=== PATIENT | female | born 1950 | race Caucasian/White ===

== ENCOUNTER 2021-03-08 07:07 | Outpatient (CLI) | payer MEDICARE, SELFPAY ==
--- NOTE | 2021-03-08 07:16 | MM_ITS ---
WS: [id number] Bilateral screening digital mammogram, 03/08/2021 Clinical Data: SCREENING Comparison: 08/28/2012, 07/13/2011, 06/02/2010, 02/03/2009, 12/26/2007. Findings: The breast parenchymal pattern shows heterogeneous density No spiculated masses or clustered calcific ations are seen. There are no secondary signs of carcinoma. There are scattered benign calcifications throughout both breasts. There is a mole marker on the left breast. There are small axillary lymph n odes bilaterally. MM/[place] [id number] Impression: 1. Negative bilateral mammogram unchanged. 2. Recommend annual screening mammograms. BIRADS: 1-Negative FOLLOW UP: 1 Year Follow-up The CAD battery checker was used.
== END 2021-03-08 07:08 | disposition home or self-care (01) ==
PROVIDERS: PCP Family Medicine; Visit Provider Family Medicine
DX: Z12.31 Encounter for screening mammogram for malignant neoplasm of breast (principal)
CPT/HCPCS: 77067

== ENCOUNTER 2021-10-13 12:03 | Outpatient (CLI) | payer MEDICARE, SELFPAY ==
--- NOTE | 2021-10-13 13:02 | XR_ITS ---
WS: [id number] CHEST 2 VIEWS HISTORY: COUGH COMPARISON: None available. Lungs: Mild hyperinflated lungs. No mass or consolidation. Normal vascularity. Cardiac size: Normal. Mediastinum/Aorta: Normal mediastinum. Bones: Normal. XR/XR chest 2V* [id number] IMPRESSION: Chronic emphysema. No pneumonia.
== END 2021-10-13 12:04 | disposition home or self-care (01) ==
LOC: RAD 12:04
PROVIDERS: PCP Family Medicine; Visit Provider Family Medicine
DX: R05.9 Cough, unspecified (principal)
CPT/HCPCS: 71046

== ENCOUNTER → 2021-12-09 07:03 | Outpatient (BNVA) | payer MEDICARE, SELFPAY | PROVIDERS: PCP Family Medicine; Visit Provider Family Medicine | DX: N39.0 Urinary tract infection, site not specified (principal) | CPT/HCPCS: 81000; 87077; 87086; 87184 ==

== ENCOUNTER → 2021-12-29 08:26 | Outpatient (BNVA) | payer MEDICARE, SELFPAY | PROVIDERS: PCP Family Medicine; Visit Provider Anesthesiology Pain Medicine | DX: Z87.891 Personal history of nicotine dependence (principal); M54.16 Radiculopathy, lumbar region | CPT/HCPCS: 72110; 99204 ==

== ENCOUNTER → 2022-02-02 11:12 | Outpatient (BNVA) | payer MEDICARE, SELFPAY | PROVIDERS: PCP Family Medicine; Visit Provider Anesthesiology Pain Medicine | DX: M54.16 Radiculopathy, lumbar region (principal); M41.9 Scoliosis, unspecified; Z87.891 Personal history of nicotine dependence | CPT/HCPCS: 99213; 99214 ==

== ENCOUNTER 2022-03-02 10:30 | Outpatient (RCR) | payer MEDICARE, SELFPAY | END 2022-03-04 23:59 | disposition home or self-care (01) | LOC: SPT 10:30 | PROVIDERS: PCP Family Medicine; Visit Provider Anesthesiology Pain Medicine | DX: M54.50 Low back pain, unspecified (principal); G89.29 Other chronic pain | CPT/HCPCS: 97161 ==

== ENCOUNTER 2022-03-05 06:00 | Outpatient (RCR) | payer MEDICARE, SELFPAY | END 2022-04-04 23:59 | disposition home or self-care (01) | LOC: SPT 06:00 | PROVIDERS: PCP Family Medicine; Visit Provider Anesthesiology Pain Medicine | DX: M54.50 Low back pain, unspecified (principal); G89.29 Other chronic pain | CPT/HCPCS: 97110 ==

== ENCOUNTER 2022-03-15 09:37 | Observation (INO) | payer MEDICARE, SELFPAY ==
[2022-03-15] VITALS (19 sets, daily range): BP systolic 125–158; BP diastolic 51–80; PULSE 69–96; RESP 14–18; TEMP 36.4–36.7; O2SAT 92–100; BMI 28.1
[2022-03-15] MEDS: sodium chloride 0.9% 1,000 ML 30 ML IV (06:35)
[2022-03-15] MEDS: acetaminophen 1,000 MG/100 ML PIGGYBACK 400 MG IV (06:36)
--- NOTE | 2022-03-15 06:42 | ANES.PREANE2 ---
Pre-Anesthetic Assessment Height/Weight: Height 1.73 m Weight 83.915 kg Preop Diagnosis: uterine prolapse, cystocele, mixed incontinence Operation Date: 03/15/22 07:00 Proposed Procedures p Total vaginal hysterectomy, bilateral salpingo-oophorectomy 52427, Anterior and posterior repair 77923, Mid urethral sling 26072,N81.4(Not Applicable) - Nereida Bridges MD s Salpingo-Oophorectomy (Vaginal)(Bilateral) - Nereida Bridges MD s Anterior Repair(Not Applicable) - Nereida Bridges MD s Posterior Repair(Not Applicable) - Nereida Bridges MD s Sling Single Incision Midurethral Sling(Not Applicable) - Nereida Bridges MD Familial anesthetic complications: None Was Beta Misbah taken within 24 hours: N/A Was Clonidine taken within 24 hours: N/A Last intake: > 8hrs Social No alcohol and No tobacco former smoker Exam alert, oriented x 3, clear to auscultation bilaterally and regular rate & rhythm Airway Mallampati: Class I Dentition: full Pulmonary inhaler use 2x weekly (? copd) CV/HEM Hypertension None reported Hepatic None reported GI None reported Metabolic None reported Musc/skel None reported Neuropsych None reported Anesthetic Plan ASA status: 2 Anesthesia: General Risk of > 500 ml blood loss (7ml/kg in children): No Medications/Allergies Home Medications Medication Instructions Recorded Confirmed Last Taken Type amlodipine 5 mg tablet 5 mg PO BID 05/13/21 03/15/22 03/15/22 History albuterol sulfate 90 mcg/actuation 2 puff inhalation Q6H PRN 12/29/21 03/15/22 03/14/22 History aerosol inhaler (ProAir HFA) Shortness Of Breath fluticasone propionate 110 1 puff inhalation BID 12/29/21 03/15/22 03/08/22 History mcg/actuation HFA aerosol inhaler (Flovent HFA) gabapentin 300 mg capsule 300 mg PO DAILY 12/29/21 03/15/22 03/14/22 History losartan 100 1 tab PO DAILY 12/29/21 03/15/22 03/14/22 History mg-hydrochlorothiazide 25 mg tablet diclofenac sodium 75 mg 75 mg PO BID PRN pain #60 tabs 09/03/15/22 03/15/22 Rx tablet,delayed release aspirin 81 mg tablet,delayed 81 mg PO DAILY 03/14/22 03/15/22 03/14/22 History release oxybutynin chloride 10 mg 10 mg PO DAILY 03/14/22 03/15/22 Unknown History tablet,extended release 24 hr Allergies Allergy/AdvReac Type Severity Reaction Status Date / Time No Known Allergies Allergy Verified 03/10/22 08:59 [facility] Anesthesia Medical History Bladder incontinence Hypertension Surgical History History of bilateral knee replacement History of cataract surgery Family History Father CAD (coronary artery disease) Hyperlipidemia Grandfather No problems noted. Grandmother Ovarian cancer Maternal Suicide Maternal Other Stroke Denies family history of Diabetes Clotting disorder Chronic kidney disease (CKD) Bleeding disorder Hypertension Thyroid disease Social History Smoking and tobacco status: never smoked Alcohol intake: never Data Anesthesia Cardiac Studies: No Data to Display
[2022-03-15] MEDS: phenazopyridine 100 mg Tablet 200 MG PO ×3 (06:49→21:05)
[2022-03-15] MEDS: gabapentin 300 mg Capsule PO (06:49)
[2022-03-15] MEDS: CELEcoxib 200 mg Capsule 400 MG PO (06:50)
[2022-03-15] MEDS: scopolamine 1.5 Patch 1 PATCH TRANSDERMA (06:51)
[2022-03-15 07:03] LABS: Basophils # 0.1 10^3/uL (0.0-0.1); Basophils % 1.8 %; Eosinophils # 0.6 10^3/uL (0.0-0.8); Eosinophils % 11.3 %; Hematocrit 40.3 % (37.0-47.0); Hemoglobin 13.6 g/dL (11.5-15.3); Lymphocytes # 1.4 10^3/uL (0.8-4.8); Lymphocytes % 27.7 %; Mean Corpuscular HGB Conc 33.7 g/dL (30.0-36.0); Mean Corpuscular Volume 88.8 fl (81-99); Mean Platelet Volume 11.1 fL (7.4-10.4); Monocytes # 0.4 10^3/uL (0.2-0.9); Monocytes % 8.5 %; Neutrophils # 2.56 10^3/uL (1.8-7.7); Neutrophils % 50.5 %; Nucleated Red Blood Cells % 0 %; Platelet Count 161 10^3/cmm (130-400); Red Blood Count 4.54 10^6/uL (4.1-5.3); Red Cell Distribution Width 13.7 % (12.1-15.1); White Blood Count 5.1 10^3/uL (4.0-10.0)
[2022-03-15] MEDS: ceFAZolin 2,000 MG in sodium chloride 0.9% (plus) 50 ML 100 MG IV ×3 (07:05→23:06)
--- NOTE | 2022-03-15 07:07 | W.PM.OPSUD ---
Surgery/Procedure H&P Update DATE OF PROCEDURE: March 15, 2022 DATE H&P PERFORMED: 03/10/22 H&P UPDATE INFORMATION: I have reviewed H&P completed within last 30 days, I have examined patient prior to procedure and No changes to prior documentation PREOP DIAGNOSIS: uterine prolapse, cystocele, mixed incontinence PLANNED PROCEDURE: Operation Date: 03/15/22 07:00 Proposed Procedures p Total vaginal hysterectomy, bilateral salpingo-oophorectomy 25357, Anterior and posterior repair 04855, Mid urethral sling 65266,N81.4(Not Applicable) - Nereida Bridges MD s Salpingo-Oophorectomy (Vaginal)(Bilateral) - Nereida Bridges MD s Anterior Repair(Not Applicable) - Nereida Bridges MD s Posterior Repair(Not Applicable) - Nereida Bridges MD s Sling Single Incision Midurethral Sling(Not Applicable) - Nereida Bridges MD Related Problem List Diagnoses (1) Mixed incontinence: (2) Cystocele with incomplete uterovaginal prolapse: (3) Uterine prolapse:
[2022-03-15] MEDS: vasopressin 20 unit/mL INJ INJECTION (07:51)
--- NOTE | 2022-03-15 09:27 | PM.OP ---
Operative Report Date of procedure: March 15, 2022 Pre-op diagnosis: Preop Diagnosis uterine prolapse, cystocele, mixed incontinence Post-op diagnosis: same Procedure done: TVH, anterior colporrhaphy, mid urethral sling, cystoscopy Specimens removed/disposition: uterus to pathology Surgeon: Nereida Bridges Anesthesia: General Estimated blood loss (mL): 20 IV fluids (mL): 800 Urine output (mL): 500 Complications: none Findings: unable to remove tubes and ovaries as they weren't visible Condition: stable Disposition: PACU Procedure: The patient was taken to the operating room where general anesthesia was administered and found to be adequate. She was prepped and draped in the normal sterile fashion in the dorsal lithotomy position in [facility]. A Moraes catheter was placed. A weighted speculum was placed into the vagina and the anterior and posterior lip of the cervix was grasped with a Escudero tenaculum. 10 mL of dilute Pitressin was injected at the vesicovaginal junction. A circumferential incision was made at the vesicovaginal junction and the vaginal mucosa reflected cephalad. The posterior peritoneum was entered sharply with the Metzenbaum scissors and the long weighted speculum replaced. Using the Yon clamps the uterosacral ligaments were clamped cut and suture-ligated. Then sequentially the uterine arteries and cardinal ligaments were clamped cut and suture-ligated. A single-tooth tenaculum was used to deliver the uterus. The utero-ovarian ligaments were clamped cut and suture-ligated bilaterally and the specimen was removed. The bilateral fallopian tubes and ovaries were visualized and found to be normal. The peritoneum was closed with a pursestring using 2-0 Vicryl. The vaginal cuff was closed with 0 Vicryl in a running locked pattern incorporating the uterosacral ligaments into the lateral aspects of the vaginal cuff. The vaginal cuff was identified and an allis clamp was placed in the midline of the vaginal mucosa, approximately 2 cm anterior to the cuff. A second allis clamp was placed in the midline of the vaginal mucosa, about 2 cm posterior to the urethra. An incision was made in the midline from clamp to clamp. The vaginal mucosa was clamped laterally and the cystocle dissected off of the vesicovaginal fascia. The tissue was sharply and bluntly dissected along the pubic ramus bilaterally. The sling was placed on the left first by going through the incision and attaching the sling to the obturator foramen membrane . The right side was performed in a similar fashion, placing the applicator through the incision and attaching to the obturator foramen membrane. The Moraes catheter was removed and the cystoscope advanced into the bladder. Pyridium had previously been given in pre-op. Bilateral spill of orange fluid was noted from both ureteral orifices. There was no mesh noted to be in the bladder. 300 ml of sterile saline was placed into the bladder. The sling was tightened until there was no leakage with valsalva. The tag of suture was trimmed. The cystocele was packed away and the vesicovaginal fascia brought together in the midline with figure of 8 interrupted sutures of O-Vicryl. The packing was removed and the excess vaginal tissue trimmed. The entire incision was repaired with 0-Vicryl in a running fashion. Vaginal packing was placed. The patient tolerated the procedure well. Sponge lap and needle counts were correct x3. She was taken to the recovery room in stable condition.
[2022-03-15] MEDS: ketorolac 30 mg/mL INJ IVP ×3 (10:35→21:05)
[2022-03-15] MEDS: dextrose 5%-lactated ringers 1,000 ML 125 ML IV ×4 (10:35→19:22)
[2022-03-15 10:55] LABS: Anion Gap 13.6 (5-19); Blood Urea Nitrogen 9 mg/dL (8-23); Calcium 9.1 mg/dL (8.5-10.5); Carbon Dioxide 27 mmol/L (22-29); Chloride 97 mmol/L (98-107); Glucose 163 mg/dL (65-115); Osmolality Calculated 280 mOsm/kg (285-295); Potassium 3.6 mmol/L (3.5-5.1); Sodium 134 mmol/L (136-145)
--- NOTE | 2022-03-15 12:51 | ANE.PACU2 ---
Inpatient post-anesthesia follow up: Airway intact: Yes Vital signs: Temperature 97.6 F Pulse Rate 86 Respiratory Rate 18 Blood Pressure 147/51 Pulse Oximetry 93 Oxygen Delivery Me thod Room Air Oxygen Flow Rate 6 Fraction of Inspir ed Oxygen Hydration adequate: Yes Nausea and vomiting: No Pain level: 1 Mental status: Baseline
--- NOTE | 2022-03-15 15:13 | PC.NURSE ---
Malfunction noted in blood pressure monitor. The monitor was set to go off for protocol times and did not. The times it did take blood pressure, it did not record pulse or oxygen saturation.
[2022-03-15] MEDS: docusate sodium 100 mg Capsule PO (18:09)
[2022-03-15] MEDS: amlodipine 5 mg Tablet PO (18:09)
[2022-03-16] MEDS: ketorolac 30 mg/mL INJ IVP (04:00)
[2022-03-16 04:15] VITALS: BP 150/70; PULSE 79; TEMP 36.6; O2SAT 95
[2022-03-16 05:52] LABS: Hematocrit 37.5 % (37.0-47.0); Hemoglobin 12.8 g/dL (11.5-15.3); Mean Corpuscular HGB Conc 34.1 g/dL (30.0-36.0); Mean Corpuscular Hemoglobin 29.9 pg (28.0-34.0); Mean Corpuscular Volume 87.6 fl (81-99); Mean Platelet Volume 8.8 fL (7.4-10.4); Platelet Count 315 10^3/cmm (130-400); Red Blood Count 4.28 10^6/uL (4.1-5.3); Red Cell Distribution Width 13.6 % (12.1-15.1); White Blood Count 8.9 10^3/uL (4.0-10.0)
--- NOTE | 2022-03-16 10:08 | PM.DCS ---
Discharge Providers Date of Admission: 03/15/22 09:37 Date of Discharge: March 16, 2022 Attending Provider at Admission: Nereida Bridges MD Attending Provider at Discharge: Nereida Bridges MD Primary Care Provider: Jason Thomas MD Diagnoses at Discharge Discharge Diagnosis (1) Mixed incontinence: Status: Acute (2) Cystocele with incomplete uterovaginal prolapse: Status: Acute (3) Uterine prolapse: Status: Acute Hospital Course Hospital Course The patient was admitted for surgery. She did well postoperatively and was ready for discharge on day #1 Physical Exam Narrative: The patient is doing well this morning. She has been up ambulating. She has had her catheter and packing removed and only had 55 ml of post void residual. Const: COMMON NORMALS: no acute distress, average body habitus, patient oriented x3, no limitations, healthy appearing, alert and well nourished GENERAL APPEARANCE: cooperative, comfortable, well kempt and well developed ORIENTATION/CONSCIOUSNESS: Yes awake, Yes oriented to person, Yes oriented to place and Yes oriented to time Resp: COMMON NORMALS: normal respiratory effort EFFORT & INSPECTION: Yes able to speak in complete sentences GI: COMMON NORMALS: Soft to palpation and non-tender PALPATION: Yes Soft to palpation Extremity: COMMON NORMALS: no calf tenderness Neuro: COMMON NORMALS: patient oriented x3 SENSORIUM/ORIENTATION: Yes alert, Yes oriented to person, Yes oriented to place and Yes oriented to time Psych: APPEARANCE: Yes well kempt Urinary Catheter Management: Moraes: Cath Placed During This Visit: yes, but has since been removed by the nurse Reason for Continuing Indwelling Catheter: Decision to DC Catheter Urinary Catheter Date of Insertion: 03/15/22 Urinary Catheter Time of Insertion: 07:42 Date Urinary Catheter Removed: 03/16/22 Time Urinary Catheter Discontinued: 05:30 Discharge Data Studies Completed and Pending Pending at discharge Category Date Time Status Urine Culture Routine Lab 03/15/22 07:36 Results Pathology: Surgical [PTH] Routine Pth 03/15/22 08:39 Received Laboratory Results WBC 8.9 10^3/uL (4.0-10.0) 03/16/22 05:46 RBC 4.28 10^6/uL (4.1-5.3) 03/16/22 05:46 Hgb 12.8 g/dL (11.5-15.3) 03/16/22 05:46 Hct 37.5 % (37.0-47.0) 03/16/22 05:46 MCV 87.6 fl (81-99) 03/16/22 05:46 MCH 29.9 pg (28.0-34.0) 03/16/22 05:46 MCHC 34.1 g/dL (30.0-36.0) 03/16/22 05:46 RDW 13.6 % (12.1-15.1) 03/16/22 05:46 Plt Count 315 10^3/cmm (130-400) D 03/16/22 05:46 MPV 8.8 fL (7.4-10.4) 03/16/22 05:46 Neut % (Auto) 50.5 % 03/15/22 06:35 Lymph % (Auto) 27.7 % 03/15/22 06:35 Teller % (Auto) 8.5 % 03/15/22 06:35 Eos % (Auto) 11.3 % 03/15/22 06:35 Baso % (Auto) 1.8 % 03/15/22 06:35 Neut # (Auto) 2.56 10^3/uL (1.8-7.7) 03/15/22 06:35 Lymph # (Auto) 1.4 10^3/uL (0.8-4.8) 03/15/22 06:35 Teller # (Auto) 0.4 10^3/uL (0.2-0.9) 03/15/22 06:35 Eos # (Auto) 0.6 10^3/uL (0.0-0.8) 03/15/22 06:35 Baso # (Auto) 0.1 10^3/uL (0.0-0.1) 03/15/22 06:35 Nucleated RBC % (auto) 0 % 03/15/22 06:35 Nucleated RBCs # 0.0 /100WBC 03/15/22 06:35 Sodium 134 mmol/L (136-145) L 03/15/22 10:31 Potassium 3.6 mmol/L (3.5-5.1) 03/15/22 10:31 Chloride 97 mmol/L (98-107) L 03/15/22 10:31 Carbon Dioxide 27 mmol/L (22-29) 03/15/22 10:31 Anion Gap 13.6 (5-19) 03/15/22 10:31 BUN 9 mg/dL (8-23) 03/15/22 10:31 Creatinine 0.6 mg/dL (0.5-0.9) 03/15/22 10:31 GFR Calculation Not Reportable 03/15/22 10:31 Glucose 163 mg/dL (65-115) H 03/15/22 10:31 Calculated Osmolality 280 mOsm/kg (285-295) L 03/15/22 10:31 Calcium 9.1 mg/dL (8.5-10.5) 03/15/22 10:31 Blood Type O Positive 03/15/22 06:35 Rho(D) Type Positive 03/15/22 06:35 Antibody Screen Negative 03/15/22 06:35 Vitals Last Vital Signs Temp 97.9 F 03/16/22 04:15 Pulse 79 03/16/22 04:15 Resp 16 03/15/22 22:00 BP 150/70 03/16/22 04:15 Pulse Ox 95 03/16/22 04:15 O2 Del Method 03/16/22 04:15 O2 Flow Rate 6 03/15/22 09:36 Discharge Plan Discharge Patient Disposition: Home Condition: Stable Prescriptions: New docusate sodium 100 mg Capsule 100 mg PO BID Qty: 60 0RF ibuprofen 800 mg Tablet 800 mg PO Q8H Qty: 30 0RF hydrocodone-acetaminophen 5-325 mg Tablet 1 tab PO Q4H PRN (Reason: Moderate To Severe Pain) Qty: 30 0RF Continued amlodipine 5 mg tablet 5 mg PO BID albuterol sulfate [ProAir HFA] 90 mcg/actuation HFA aerosol inhaler 2 puff inhalation Q6H PRN (Reason: Shortness Of Breath) losartan-hydrochlorothiazide 100-25 mg tablet 1 tab PO DAILY gabapentin 300 mg capsule 300 mg PO DAILY fluticasone propionate [Flovent HFA] 110 mcg/actuation HFA aerosol inhaler 1 puff inhalation BID diclofenac sodium 75 mg tablet,delayed release (DR/EC) 75 mg PO BID PRN (Reason: pain) Qty: 60 3RF oxybutynin chloride 10 mg tablet extended release 24hr 10 mg PO DAILY aspirin 81 mg Tablet,Delayed Release (Dr/Ec) 81 mg PO DAILY Discharge Orders: Discharge Order (Routine); Ordered 03/16/22 Ordered By: Nereida Bridges Patient Instructions: Opioid Safety Discharge Attestations Time Spent in Discharge Care*: less than 30 min Quality Metrics Clinical Quality Measures [ No reported AMI, CVA or VTE this stay] Coding Level of Care Code Acute Chg FW DC note Diagnoses Mixed incontinence N39.46 Cystocele with incomplete uterovaginal prolapse N81.2 Uterine prolapse N81.4
[2022-03-16] MEDS: docusate sodium 100 mg Capsule PO (10:22)
[2022-03-16] MEDS: ibuprofen 800 mg tablet PO ×2 (10:22→16:19)
[2022-03-16] MEDS: phenazopyridine 100 mg Tablet 200 MG PO (10:22)
[2022-03-16 10:23] VITALS: BP 148/72
[2022-03-16] MEDS: losartan 50 mg Tablet 100 MG PO (10:23)
[2022-03-16 10:25] VITALS: BP 148/72; PULSE 80; RESP 16; TEMP 36.4; O2SAT 95
[2022-03-16] MEDS: amlodipine 5 mg Tablet PO (10:25)
[2022-03-16 17:00] VITALS: BP 156/80; PULSE 94; RESP 16; TEMP 36.4; O2SAT 95
== END 2022-03-16 17:20 | disposition home or self-care (01) ==
LOC: OBGYN 09:42
PROVIDERS: Admitting Provider Obstetrics & Gynecology; PCP Family Medicine; Visit Provider Obstetrics & Gynecology
PROC: (CPT 57288; principal; 2022-03-15 07:00)
PROC: 0JQC0ZZ Repair Pelvic Region Subcutaneous Tissue and Fascia, Open Approach (ICD-10-PCS; CPT 57240; 2022-03-15 07:00)
PROC: (CPT 57288; 2022-03-15 07:00)
DX: N81.4 Uterovaginal prolapse, unspecified (principal); N39.46 Mixed incontinence; Z87.891 Personal history of nicotine dependence; I10 Essential (primary) hypertension; Z79.82 Long term (current) use of aspirin
CPT/HCPCS: 57288; 58260; 36415; 51798; 80048; 85025; 85027; 86850; 86900; 87086; 88305; 96374; C1713; G0378; J1100; J1170; J1885; J1940; J2405; J2704; J3010; J3490; J7030

== ENCOUNTER 2022-04-04 15:00 | Outpatient (CLI) | payer MEDICARE, SELFPAY ==
--- NOTE | 2022-04-04 15:08 | MM_ITS ---
WS: [id number] BILATERAL 3D TOMOSYNTHESIS DIGITAL SCREENING MAMMOGRAPHY WITH CAD CLINICAL INFORMATION: SCREENING HISTORY: Screening mammogram. No current complaints. COMPARISON: March 08, 2021 TECHNIQUE: Bilateral CC and MLO views. FINDINGS: The breasts are composed of heterogeneous fibroglandular density tissue, which can limit the detectio n of small underlying mass lesions. No suspicious mass, asymmetry, calcifications, or architectural d istortion. No evidence of malignancy. Punctate and lucent centered calcifications. Dystrophic and clu ster calcifications upper outer LEFT breast appear stable. MM/[place] [id number] IMPRESSION: BI-RADS: 2-Benign FOLLOW UP: 1 Year Follow-up Recommend return to annual screening mammography.
== END 2022-04-04 15:01 | disposition home or self-care (01) ==
LOC: RAD 15:02
PROVIDERS: PCP Family Medicine; Visit Provider Family Medicine
DX: Z12.31 Encounter for screening mammogram for malignant neoplasm of breast (principal)
CPT/HCPCS: 77063; 77067

== ENCOUNTER 2022-04-05 06:00 | Outpatient (RCR) | payer MEDICARE, SELFPAY | END 2022-04-15 23:59 | disposition home or self-care (01) | LOC: SPT 06:00 | PROVIDERS: PCP Family Medicine; Visit Provider Anesthesiology Pain Medicine | DX: M54.50 Low back pain, unspecified (principal); G89.29 Other chronic pain | CPT/HCPCS: 97110 ==

== ENCOUNTER 2022-08-31 14:07 | Observation (INO) | payer MEDICARE, SELFPAY ==
[2022-08-30 11:35] VITALS: BMI 30.4
--- NOTE | 2022-08-30 11:48 | ECG_ITS ---
[facility] Test Date: 2022-08-30 Pat Name: Petra Avalos Department: Room: Gender: Female [employer] Manager: : 1950 Requested By: Leon Calhoun Order Number: [id number] Mary MD: Jeffrey Nunes M.D. Measurements Intervals [place] Rate: 80 P: 71 AL: 164 QRS: 87 QRSD: 97 T: 50 QT: 379 QTc: 438 Interpretive Statements SINUS RHYTHM POSSIBLE LEFT ATRIAL ENLARGEMENT [-0.1mV P-WAVE IN V1/V2] INCOMPLETE RIGHT BUNDLE BRANCH BLOCK [90+ ms QRS DURATION, TERMINAL R IN V1/V2, 40+ ms S IN I/aVL/V4/V5/V6] NONSPECIFIC T-WAVE ABNORMALITY No previous ECG available for comparison Electronically Signed On 08-31-2022 0:48:48 CDT by Jeffrey Nunes M.D. [id number]
[2022-08-30 12:07] LABS: Basophils # 0.1 10^3/uL (0.0-0.1); Basophils % 1.8 %; Eosinophils # 0.3 10^3/uL (0.0-0.8); Eosinophils % 5.9 %; Hematocrit 38.6 % (37.0-47.0); Hemoglobin 13.2 g/dL (11.5-15.3); Lymphocytes # 1.6 10^3/uL (0.8-4.8); Mean Corpuscular HGB Conc 34.2 g/dL (30.0-36.0); Mean Corpuscular Hemoglobin 30.8 pg (28.0-34.0); Mean Platelet Volume 9.8 fL (7.4-10.4); Monocytes # 0.4 10^3/uL (0.2-0.9); Monocytes % 7.6 %; Neutrophils # 3.01 10^3/uL (1.8-7.7); Neutrophils % 55.5 %; Nucleated Red Blood Cells % 0 %; Platelet Count 288 10^3/cmm (130-400); Red Blood Count 4.29 10^6/uL (4.1-5.3); Red Cell Distribution Width 13.4 % (12.1-15.1); White Blood Count 5.4 10^3/uL (4.0-10.0)
[2022-08-30 12:11] LABS: Add Urine Microscopic? NO; Charge for UA Resulting for Rev
[2022-08-30 12:17] LABS: Alanine Aminotransferase 39 U/L (0-33); Alkaline Phosphatase 121 U/L (35-105); Anion Gap 14.8 (5-19); Aspartate Amino Transferase 33 U/L (0-32); Blood Urea Nitrogen 14 mg/dL (8-23); Calcium 9.3 mg/dL (8.5-10.5); Carbon Dioxide 26 mmol/L (22-29); Chloride 97 mmol/L (98-107); Globulin 3.1 g/dL (1.3-4.6); Glucose 101 mg/dL (65-115); Osmolality Calculated 279 mOsm/kg (285-295); Potassium 3.8 mmol/L (3.5-5.1); Sodium 134 mmol/L (136-145); Total Bilirubin 0.3 mg/dL (0.15-1.2); Total Protein 7.1 g/dL (6.6-8.7)
[2022-08-30 12:22] LABS: Bilirubin Urine Neg (Negative); Blood Urine Neg (Negative); Glucose Urine UA Norm (Normal); Ketones Urine Negative (Negative); Leukocyte Esterase Urine Negative (Negative); Nitrate Urine Negative (Negative); Protein Urine Neg (Negative); Specific Gravity, Urine 1.015 (1.005-1.030); Sulfosalicylic Acid Urine Negative (Negative); Urine Appearance Clear (CLEAR); Urine Color Yellow (Yellow); Urobilinogen Urine Norm (Negative); pH Urine 8 (5-7)
--- NOTE | 2022-08-30 12:40 | ANES.PREANE2 ---
Pre-Anesthetic Assessment Height/Weight: Height 1.73 m Weight 90.718 kg Preop Diagnosis: uterine prolapse, cystocele, mixed incontinence Operation Date: 08/31/22 11:40 Proposed Procedures p Vaginal vault suspension [id number], Anterior colporrhaphy 29169 mid urethral sling 27858,N81.9,N81.10(Not Applicable) - Juan Butler MD s Sacrospinous Ligament Suspension Anterior Colporrhaphy(Not Applicable) - Juan Butler MD s Sling Single Incision Midurethral Sling(Not Applicable) - Juan Butler MD Familial anesthetic complications: none Was Beta Misbah taken within 24 hours: N/A Was Clonidine taken within 24 hours: N/A Social No alcohol and No tobacco Exam alert, oriented x 3, clear to auscultation bilaterally and regular rate & rhythm Airway Submandibular: within normal limits Cervical ROM: within normal limits Mallampati: Class II Dentition: full Pulmonary Asthma CV/HEM Hypertension Metabolic Morbid Obesity Musc/skel Lower Back Pain and Osteoarthritis/DJD Anesthetic Plan ASA status: 3 Anesthesia: General Medications/Allergies Home Medications Medication Instructions Recorded Confirmed Last Taken Type albuterol sulfate 90 mcg/actuation 2 puff inhalation Q6H PRN 12/29/21 08/30/22 08/29/22 History aerosol inhaler (ProAir HFA) Shortness Of Breath fluticasone propionate 110 1 puff inhalation BID 12/29/21 08/30/22 08/27/22 History mcg/actuation HFA aerosol inhaler (Flovent HFA) gabapentin 300 mg capsule 300 mg PO DAILY 12/29/21 08/30/22 08/29/22 History aspirin 81 mg tablet,delayed 81 mg PO DAILY 03/14/22 08/30/22 08/30/22 History release losartan 100 See Rx Instructions .Route 05/31/22 08/30/22 08/30/22 Rx mg-hydrochlorothiazide 25 mg tablet .COMPLEX #90 tabs amlodipine 5 mg tablet See Rx Instructions .Route 07/05/22 08/30/22 08/30/22 Rx .COMPLEX #180 tabs cyclobenzaprine 10 mg tablet See Rx Instructions .Route 07/05/22 08/30/22 08/29/22 Rx .COMPLEX #270 tabs oxybutynin chloride 10 mg See Rx Instructions .Route 07/14/22 08/30/22 08/29/22 Rx tablet,extended release 24 hr .COMPLEX #90 tabs diclofenac sodium 75 mg See Rx Instructions .Route 07/27/22 08/30/22 08/29/22 Rx tablet,delayed release .COMPLEX #60 tabs Allergies Allergy/AdvReac Type Severity Reaction Status Date / Time No Known Allergies Allergy Verified 08/30/22 11:29 [facility] Anesthesia Medical History Bladder incontinence Hypertension Surgical History History of bilateral knee replacement History of cataract surgery Family History (Updated 08/29/22 @ 08:50 by Ene Nicholas) Father CAD (coronary artery disease) Hyperlipidemia Grandfather No problems noted. Grandmother Ovarian cancer Maternal Stroke Denies family history of Diabetes Clotting disorder Chronic kidney disease (CKD) Bleeding disorder Hypertension Thyroid disease Data Anesthesia 08/30/22 11:43 08/30/22 11:43 Short CBC 08/30/22 Range/Units 11:43 WBC 5.4 (4.0-10.0) 10^3/uL Hgb 13.2 (11.5-15.3) g/dL Hct 38.6 (37.0-47.0) % MCV 90.0 (81-99) fl Plt Count 288 (130-400) 10^3/cmm Neut % (Auto) 55.5 % Neut # (Auto) 3.01 (1.8-7.7) 10^3/uL BMP 08/30/22 11:43 Sodium 134 L Potassium 3.8 Chloride 97 L Carbon Dioxide 26 BUN 14 Creatinine 0.6 Glucose 101 Calcium 9.3 Liver Function 08/30/22 Range/Units 11:43 Total Bilirubin 0.3 (0.15-1.2) mg/dL AST 33 H (0-32) U/L ALT 39 H (0-33) U/L Alkaline Phosphatase 121 H (35-105) U/L Albumin 4.0 (3.5-5.2) g/dL Urine 08/30/22 Range/Units 11:59 Urine Color Yellow (Yellow) Urine Appearance Clear (CLEAR) Urine pH 8 H (5-7) Ur Specific [place] 1.015 (1.005-1.030) Urine Protein Neg (Negative) Urine Glucose (UA) Norm (Normal) Urine Ketones Negative (Negative) Urine Nitrate Negative (Negative) Urine Bilirubin Neg (Negative) Ur Leukocyte Esterase Negative (Negative) Blood Bank 08/30/22 11:43 Blood Type O Positive Rho(D) Type Positive Antibody Screen Negative Cardiac Studies: No Data to Display
[2022-08-31] VITALS (15 sets, daily range): BP systolic 112–176; BP diastolic 57–88; PULSE 68–105; RESP 16–18; TEMP 36.1–37.1; O2SAT 94–100; BMI 30.4
[2022-08-31] MEDS: sodium chloride 0.9% 1,000 ML 30 ML IV (10:32)
[2022-08-31] MEDS: enoxaparin 30 mg/0.3 mL Syringe SUBCUT (10:34)
[2022-08-31] MEDS: scopolamine 1.5 Patch 1 PATCH TRANSDERMA (10:41)
--- NOTE | 2022-08-31 10:43 | W.PM.OPSUD ---
Surgery/Procedure H&P Update DATE OF PROCEDURE: August 31, 2022 DATE H&P PERFORMED: 08/29/22 H&P UPDATE INFORMATION: I have reviewed H&P completed within last 30 days, I have examined patient prior to procedure and No changes to prior documentation PREOP DIAGNOSIS: Vaginal vault prolapse, cystocele, stress urinary incontinence PLANNED PROCEDURE: Operation Date: 08/31/22 11:20 Proposed Procedures p Vaginal vault suspension [id number], Anterior colporrhaphy 00734 mid urethral sling 44646,N81.9,N81.10(Not Applicable) - Juan Butler MD s Sacrospinous Ligament Suspension Anterior Colporrhaphy(Not Applicable) - Juan Butler MD s Sling Single Incision Midurethral Sling(Not Applicable) - Juan Butler MD
--- NOTE | 2022-08-31 10:47 | P.ANESUD_ITS ---
Pre-Anesthetic Update Pre-Anesthetic Assessment: Date of Surgery/Procedure: 08/31/22 Preop Soo gnosis: Vaginal vault prolapse, cystocele, stress urinary incontinence Proposed Procedure: Operation Date: 08/31/22 11:20 Proposed Procedures p Vaginal vault suspension [id number], Anterior colporrhaphy 42809 mid urethral sling 04572,N81.9,N81.10(Not Applicable) - Juan Butler MD s Sacrospinous Ligament Suspension Anterior Colporrhaphy(Not Applicable) - Juan Butler MD s Sling Single Incision Midurethral Sling(Not Applicable) - Juan Butler MD Any changes to Pre-Anesthetic Assessment?: No Last Intake: Intake Last Liquid Date 08/30/22 Last Liquid Time 20:00 Last Solid Date 08/30/22 Last Solid Time 18:00 Labs Last 48hrs: Short CBC 08/30/22 Range/Units 11:43 WBC 5.4 (4.0-10.0) 10^3/ uL Hgb 13.2 (11.5-15.3) g/dL Hct 38.6 (37.0-47.0) % MCV 90.0 (81-99) fl Plt Count 288 (130-400) 10^3/c mm Neut % (Auto) 55.5 % Neut # (Auto) 3.01 (1.8-7.7) 10^3/u L BMP 08/30/22 11:43 Sodium 134 L Potassium 3.8 Chloride 97 L Carbon Dioxide 26 BUN 14 Creatinine 0.6 Glucose 101 Calcium 9.3 Liver Function 08/30/22 Range/Units 11:43 Total Bilirubin 0.3 (0.15-1.2) mg/dL AST 33 H (0-32) U/L ALT 39 H (0-33) U/L Alkaline Phosphata se 121 H (35-105) U/L Albumin 4.0 (3.5-5.2) g/dL Urine 08/30/22 Range/Units 11:59 Urine Color Yellow (Yellow) Urine Appearance Clear (CLEAR) Urine pH 8 H (5-7) Ur Specific Gravit y 1.015 (1.005-1.030) Urine Protein Neg (Negative) Urine Glucose (UA) Norm (Normal) Urine Ketones Negative (Negative) Urine Nitrate Negative (Negative) Urine Bilirubin Neg (Negative) Ur Leukocyte Maren ase Negative (Negative) Blood Bank 08/30/22 11:43 Blood Type O Positive Rho(D) Type Positive Antibody Screen Negative Vitals: Temperature 98.7 F 08/31/22 10:09 Temperature Source Temporal Artery S can 08/31/22 10:09 Pulse Rate 78 08/31/22 10:09 Respiratory Rate 16 08/31/22 10:09 Blood Pressure 176/88 08/31/22 10:09 Blood Pressure Rachelle n 117 08/31/22 10:09 Pulse Oximetry 97 08/31/22 10:09 Oxygen Delivery Me thod 08/31/22 10:09 Exam: Pre-Anes Outpt Exam: alert, oriented x 3, clear to auscultation bilaterally and regular rate & rhythm Cardiac Studies: No Data to Display
[2022-08-31] MEDS: ceFAZolin 2,000 MG in sodium chloride 0.9% (plus) 50 ML 100 MG IV (11:15)
[2022-08-31] MEDS: lidocaine-epi 2% 20 mL INJ INJECTION ×2 (11:52→11:58)
[2022-08-31] MEDS: estrogens Conjugated Cream 30 gm 1 APPLIC VAGINAL (11:57)
--- NOTE | 2022-08-31 13:00 | P.OP_ITS ---
Operative Report Date of procedure: August 31, 2022 Pre-op diagnosis: Preop Diagnosis Vaginal vault prolapse, cystocele, Post-op diagnosis: Same as above Procedure done: Anterior colporrhaphy augmented with allograft. Sacrospinous fixation via Anchorsure Surgeon: Juan Butler MD Estimated blood loss (mL): 25 IV fluids (mL): 800 Urine output (mL): 200 Procedure: After obtaining informed consent, the patient was taken to the operating room and placed in the supine position, given general anesthesia, and prepped and draped in sterile fashion. The abdomen, vulva and vagina were prepped and draped in a sterile manner. A time out procedure was performed. The vaginal mucosa was then injected in the midline with normal saline. The vaginal mucosa was scored in the midline with the Bovie approximately 1 cm medial to the urethral meatus to 1 cm distal to the vaginal cuff. This vaginal mucosa was then undermined and then incised in the midline with the Metzenbaum scissors. The lateral aspects of the vaginal mucosa were then grasped with the Allis clamps and the vaginal mucosa was then dissected off the underlying fascia with the Metzenbaum scissors. Again, there was noted to be quite a bit of oozing at the incision, which was controlled with cautery. After adequate dissection was performed, bilaterally. An Coloplast allograft modified at time of application to fit spacea, 3 x 3 cm piece . The Coloplast allograft placed in front of cystocele ready to be implanted facing the vagina mucosa. Suture is placed at distal end of graft and placed towards vaginal cuff. Final suture is placed on proximal portion of the graft to complete the placement overlying the bladder. Then Interrupted vertical mattress sutures of 0 Vicryl were used to elevate the cystocele superiorly. The excessive vaginal mucosa was then trimmed with the Metzenbaum scissors and the vaginal mucosa was then reapproximated in the running interlocking fashion with 2-0 Vicryl. Then at the vaginal cuff incision a finger is inserted through the incision in the posterior vaginal mucosa, dissecting out the rectovaginal space (RVS). The right rectal pillar (RRP) is identified. The rectal pillar can be bluntly perforated either with the finger or with the tip of a long Sully clamp. A thin malleable retractor is used for exposing the rectovaginal space in order to enter the pararectal space with retraction of the cardinal ligament, vagina, and rectum. Displacing the rectum to the left and the cardinal ligament and ureter anteriorly. A sponge dissector is used to bluntly dissect the sacrospinous ligament removing areolar tissue. The ischial spine was palpated directly, and a area approximately 2 cm medial to the spine was selected for insertion of the Anchorsure transvaginal sacrospinous fixation system. One end of the suture of Anchoresure system inserted through the sacrospinous ligament is placed through the muscular layer of the vagina. In a similar manner, the second suture is placed. The opposite end of the suture in the sacrospinous ligament is left free and held on a small hemostat. Then traction on this suture will draw the vaginal vault directly to the ligament, where a square knot affixes it to the sacrospinous ligament. After the susi stitch is tied the second safety stitch is tied. Then the vaginal repair is carried out in routine fashion. Then the Moraes catheter was removed and cystoscope was inserted. The bladder was filled with sterile water. Complete evaluation of the bladder mucosa was performed noting no lacerations, dimpling, tears, bleeding of the mucosa or muscular layers. Both ureteral orifices were identified. Prompt excretion of urine from both ureteral orifices was noted. Cystoscope was withdrawn. The Fo jessica catheter was replaced. Excellent hemostasis was obtained. A vaginal pack is placed overnight as postoperative support for the vaginal tissues after graft placement and closure of vaginal incisions. Sponge, lap, needle, and instrument counts were correct times three. The patient was taken to the recovery room, awake and in stable condition.
[2022-08-31] MEDS: HYDROcodone-acetaminophen 5-325 mg Tablet PO (14:39)
[2022-08-31] MEDS: dextrose 5%-lactated ringers 1,000 ML 125 ML IV ×2 (14:39→22:23)
--- NOTE | 2022-08-31 16:50 | ANE.PACU2 ---
Inpatient post-anesthesia follow up: Airway intact: Yes Vital signs: Temperature 97.0 F Pulse Rate 74 Respiratory Rate 17 Blood Pressure 140/68 Pulse Oximetry 94 Oxygen Delivery Me thod Room Air Oxygen Flow Rate 8 Fraction of Inspir ed Oxygen Hydration adequate: Yes Nausea and vomiting: No Pain level: 3 Mental status: Baseline
[2022-08-31] MEDS: amlodipine 5 mg Tablet PO (16:55)
[2022-08-31] MEDS: ketorolac 30 mg/mL INJ IVP (16:55)
[2022-08-31] MEDS: docusate sodium 100 mg Capsule PO (16:55)
[2022-09-01] MEDS: ketorolac 30 mg/mL INJ IVP (02:19)
[2022-09-01 05:02] VITALS: BP 129/71; PULSE 88; RESP 16; TEMP 36.6
[2022-09-01 05:25] LABS: Hematocrit 33.7 % (37.0-47.0); Hemoglobin 11.3 g/dL (11.5-15.3); Mean Corpuscular HGB Conc 33.5 g/dL (30.0-36.0); Mean Corpuscular Hemoglobin 30.3 pg (28.0-34.0); Mean Corpuscular Volume 90.3 fl (81-99); Platelet Count 248 10^3/cmm (130-400); Red Blood Count 3.73 10^6/uL (4.1-5.3); Red Cell Distribution Width 13.3 % (12.1-15.1); White Blood Count 8.1 10^3/uL (4.0-10.0)
--- NOTE | 2022-09-01 09:04 | PM.OBGYDC ---
Discharge Providers FORMING PROCESS WORKER Date of Admission: 08/31/22 14:07 Date of Discharge: 09/01/22 Attending Provider at Admission: Juan Butler MD Attending Provider at Discharge: Juan Butler MD Primary FORMING PROCESS WORKER: Dr. Bridges Primary Care Provider: Jason Thomas MD Reason for Visit Reason for Visit: N81.9, N81.10 Hospital Course Hospital Course Mrs. Ray 72-year-old female post vaginal hysterectomy that developed a cystocele and vaginal vault prolapse was admitted for planned anterior colporrhaphy and sacrospinous fixation. The procedures were performed without complication. Overnight observation was uneventful. Ambulating without difficulty. Tolerating diet well. She is afebrile and hemodynamically stable postoperative day 1. She was counseled regarding pelvic rest for 6 weeks (no sex, no tampons, no vaginal douches). Return to the emergency room if any fever, increased bleeding or pain. Was also advised regarding weight lifting limitation to 10 pounds. Physical Exam Narrative: GA: Alert and oriented ?3. HEENT: WNL. Heart: Regular rate and rhythm. Lungs: Clear to auscultation bilaterally. Abdomen: Bowel sounds present, nontender, minimal tenderness. DANCE PROFESSOR: No bleeding. Extremities: No edema, no cyanosis, no calves pain. Urinary Catheter Management: Moraes: Cath Placed During This Visit: yes Urinary Catheter Date of Insertion: 08/31/22 Urinary Catheter Time of Insertion: 11:40 History History History 2 Term 2 0 Miscarriages/Ectopic 0 Living Children 2 Discharge Data Studies Completed and Pending Laboratory Results WBC 8.1 10^3/uL (4.0-10.0) 09/01/22 05:10 RBC 3.73 10^6/uL (4.1-5.3) L 09/01/22 05:10 Hgb 11.3 g/dL (11.5-15.3) L 09/01/22 05:10 Hct 33.7 % (37.0-47.0) L 09/01/22 05:10 MCV 90.3 fl (81-99) 09/01/22 05:10 MCH 30.3 pg (28.0-34.0) 09/01/22 05:10 MCHC 33.5 g/dL (30.0-36.0) 09/01/22 05:10 RDW 13.3 % (12.1-15.1) 09/01/22 05:10 Plt Count 248 10^3/cmm (130-400) 09/01/22 05:10 MPV 9.0 fL (7.4-10.4) 09/01/22 05:10 Neut % (Auto) 55.5 % 08/30/22 11:43 Lymph % (Auto) 29.0 % 08/30/22 11:43 [place] % (Auto) 7.6 % 08/30/22 11:43 Eos % (Auto) 5.9 % 08/30/22 11:43 Baso % (Auto) 1.8 % 08/30/22 11:43 Neut # (Auto) 3.01 10^3/uL (1.8-7.7) 08/30/22 11:43 Lymph # (Auto) 1.6 10^3/uL (0.8-4.8) 08/30/22 11:43 [place] # (Auto) 0.4 10^3/uL (0.2-0.9) 08/30/22 11:43 Eos # (Auto) 0.3 10^3/uL (0.0-0.8) 08/30/22 11:43 Baso # (Auto) 0.1 10^3/uL (0.0-0.1) 08/30/22 11:43 Nucleated RBC % (auto) 0 % 08/30/22 11:43 Nucleated RBCs # 0.0 /100WBC 08/30/22 11:43 Sodium 134 mmol/L (136-145) L 08/30/22 11:43 Potassium 3.8 mmol/L (3.5-5.1) 08/30/22 11:43 Chloride 97 mmol/L (98-107) L 08/30/22 11:43 Carbon Dioxide 26 mmol/L (22-29) 08/30/22 11:43 Anion Gap 14.8 (5-19) 08/30/22 11:43 BUN 14 mg/dL (8-23) 08/30/22 11:43 Creatinine 0.6 mg/dL (0.5-0.9) 08/30/22 11:43 GFR Calculation Not Reportable 08/30/22 11:43 Glucose 101 mg/dL (65-115) 08/30/22 11:43 Calculated Osmolality 279 mOsm/kg (285-295) L 08/30/22 11:43 Calcium 9.3 mg/dL (8.5-10.5) 08/30/22 11:43 Total Bilirubin 0.3 mg/dL (0.15-1.2) 08/30/22 11:43 AST 33 U/L (0-32) H 08/30/22 11:43 ALT 39 U/L (0-33) H 08/30/22 11:43 Alkaline Phosphatase 121 U/L (35-105) H 08/30/22 11:43 Total Protein 7.1 g/dL (6.6-8.7) 08/30/22 11:43 Albumin 4.0 g/dL (3.5-5.2) 08/30/22 11:43 Globulin 3.1 g/dL (1.3-4.6) 08/30/22 11:43 Urine Color Yellow (Yellow) 08/30/22 11:59 Urine Appearance Clear (CLEAR) 08/30/22 11:59 Urine pH 8 (5-7) H 08/30/22 11:59 Ur Specific Sophia 1.015 (1.005-1.030) 08/30/22 11:59 Urine Protein Neg (Negative) 08/30/22 11:59 Urine Glucose (UA) Norm (Normal) 08/30/22 11:59 Urine Ketones Negative (Negative) 08/30/22 11:59 Urine Blood Neg (Negative) 08/30/22 11:59 Urine Nitrate Negative (Negative) 08/30/22 11:59 Urine Bilirubin Neg (Negative) 08/30/22 11:59 Prot Sulfosalicylic Acd Negative (Negative) 08/30/22 11:59 Urine Urobilinogen Norm mg/dL (Negative) 08/30/22 11:59 Ur Leukocyte Esterase Negative (Negative) 08/30/22 11:59 Blood Type O Positive 08/30/22 11:43 Rho(D) Type Positive 08/30/22 11:43 Antibody Screen Negative 08/30/22 11:43 Vitals Last Vital Signs Temp 97.9 F 09/01/22 05:02 Pulse 88 09/01/22 05:02 Resp 16 09/01/22 05:02 BP 129/71 09/01/22 05:02 Pulse Ox 95 08/31/22 14:25 O2 Del Method 08/31/22 15:25 O2 Flow Rate 8 08/31/22 13:20 Discharge Plan Discharge Patient Disposition: Home Condition: Stable Prescriptions: New acetaminophen 325 mg capsule 325 mg PO Q4H PRN (Reason: fever or postoperative pain) Qty: 60 0RF ibuprofen 800 mg tablet 800 mg PO TID PRN (Reason: pain) Qty: 60 0RF No Action albuterol sulfate [ProAir HFA] 90 mcg/actuation HFA aerosol inhaler 2 puff inhalation Q6H PRN (Reason: Shortness Of Breath) gabapentin 300 mg capsule 300 mg PO DAILY fluticasone propionate [Flovent HFA] 110 mcg/actuation HFA aerosol inhaler 1 puff inhalation BID losartan-hydrochlorothiazide 100-25 mg tablet See Rx Instructions .ROUTE .COMPLEX Qty: 90 0RF Dose Instruction: TAKE 1 TABLET EVERY DAY Rx Instructions: TAKE 1 TABLET EVERY DAY cyclobenzaprine 10 mg tablet See Rx Instructions .ROUTE .COMPLEX Qty: 270 2RF Dose Instruction: TAKE 1 TABLET THREE TIMES DAILY Rx Instructions: TAKE 1 TABLET THREE TIMES DAILY amlodipine 5 mg tablet See Rx Instructions .ROUTE .COMPLEX Qty: 180 2RF Dose Instruction: TAKE 1 TABLET TWICE DAILY Rx Instructions: TAKE 1 TABLET TWICE DAILY oxybutynin chloride 10 mg tablet extended release 24hr See Rx Instructions .ROUTE .COMPLEX Qty: 90 4RF Dose Instruction: TAKE 1 TABLET BY MOUTH EVERY DAY Rx Instructions: TAKE 1 TABLET BY MOUTH EVERY DAY diclofenac sodium 75 mg tablet,delayed release (DR/EC) See Rx Instructions .ROUTE .COMPLEX Qty: 60 6RF Dose Instruction: TAKE 1 TABLET TWICE DAILY NEEDED FOR PAIN Rx Instructions: TAKE 1 TABLET TWICE DAILY NEEDED FOR PAIN aspirin 81 mg Tablet,Delayed Release (Dr/Ec) 81 mg PO DAILY Discharge Orders: Discharge Order (Routine); Ordered 09/01/22 Ordered By: Juan Butler Referrals: Juna Butler MD [Physician] - 09/14/22 11:15 am (2 week post-op: 09/14/22 @11:15 6 week post-op: 10/11/22 @11:00) Discharge Diet: Soft Mechanical Discharge Activity: Limit activity as instructed Patient Instructions: Cystocele (DC), Anterior Vaginal Repair (DC), OB Discharge Report, OB Food/Drug Interaction Guide, Opioid Safety Activity Restrictions/Additional Instructions: 1. Please call [facility] on next working day to make your post-operative appointment in 2 weeks. 2. Please stay home until you come back to the clinic on first post-operative check up. 3. Please follow instructions on your medications CAREFULLY. 4. If you have abdominal incision, do not cover it unless dressing is necessary because of drainage. OK to shower, but avoid bath. Leave steri-strips until they fall off. If they are still on one week after surgery, you may remove them. 5. If you had vaginal surgery or vaginal repair, Dr. Butler may instruct you to take SITZ bath. 6. Yellow, blood tinged odorous vaginal discharge is usually normal after hysterectomy or vaginal surgeries. 7. No sexual intercourse, tampons, or douches until you are completely released from the post-operative care. 8. Avoid constipation by eating right and maybe using some Metamucil or Milk of Magnesia. 9. All prescription refills are given during the working hours. Please do no wait till it runs out. Call the clinic at [phone] before your medication runs out. The clinic will get in touch with your doctor to prescribe medications if necessary. 10. Please remain within 40 mile radius from our hospital because emergencies do happen now and then during the post-operative period. 11. If you have stairs at home, take one step at a time slowly and minimize the number of trips. It helps to stay in one floor for the next few days. No lifting except what you can lift by one hand until you are released from the post-operative care. 12. Driving is discouraged until you are well healed. It may be 3-4 weeks before you feel strong enough to drive. You should be able to turn and look through the rear window without pain and you should be able to push the brake pedal very hard without pain before you drive. No fast rules, but SAFETY should be your primary concern. DO NOT drive if you are on sedating medications such as narcotics. 13. Call the clinic (during working hours) to make urgent appointment or go to the Emergency room, if any of the following occurs: i. Vaginal bleeding becomes heavy, more than a period. ii. Incision becomes red and sore, or drains pus. iii. Your temperature is over 100.4 or you have chill. iv. IV site becomes red and swollen (a little ``knot?? is usually OK) v. Persistent nausea and vomiting vi. Persistent constipation or diarrhea vii. Rash or allergic reaction to medications. Discharge Attestations FORMING PROCESS WORKER Time Spent in Discharge Care*: greater than 30 min Coding Level of Care Code Acute Code for Chg Fwd
[2022-09-01] MEDS: hydroCHLOROthiazide 25 mg Tablet PO (10:16)
[2022-09-01] MEDS: docusate sodium 100 mg Capsule PO (10:16)
[2022-09-01] MEDS: ibuprofen 800 mg tablet PO ×2 (10:17→17:11)
[2022-09-01] MEDS: aspirin 81 mg EC Tablet PO (10:17)
[2022-09-01] MEDS: amlodipine 5 mg Tablet PO (10:21)
[2022-09-01 10:25] VITALS: BP 129/71
[2022-09-01] MEDS: losartan 50 mg Tablet 100 MG PO (10:25)
[2022-09-01 12:00] VITALS: BP 151/73; PULSE 84; RESP 15; TEMP 36.4
[2022-09-01 16:30] VITALS: BP 131/80; PULSE 83; RESP 16; TEMP 36.6
== END 2022-09-01 17:30 | disposition home or self-care (01) ==
LOC: OBGYN 14:07
PROVIDERS: Admitting Provider Obstetrics & Gynecology; PCP Family Medicine; Visit Provider Obstetrics & Gynecology
PROC: (CPT 57240; principal; 2022-08-31 11:10)
PROC: (CPT 57282; 2022-08-31 11:10)
PROC: 0TJB8ZZ Inspection of Bladder, Via Natural or Artificial Opening Endoscopic (ICD-10-PCS; CPT 52000; 2022-08-31 11:10)
DX: N81.10 Cystocele, unspecified (principal); J45.909 Unspecified asthma, uncomplicated; I10 Essential (primary) hypertension; E66.01 Morbid (severe) obesity due to excess calories; Z68.30 Body mass index [BMI] 30.0-30.9, adult; Z79.82 Long term (current) use of aspirin; I45.10 Unspecified right bundle-branch block
CPT/HCPCS: 57240; 57282; 36415; 51702; 51798; 80053; 81003; 85025; 85027; 86850; 86900; 93005; C1762; G0378; J0690; J1100; J1170; J1650; J1885; J2405; J2704; J2710; J3010; J3490; J7030; J7121

== ENCOUNTER → 2022-09-14 12:00 | Outpatient (BNVA) | payer MEDICARE, SELFPAY | PROVIDERS: PCP Family Medicine; Visit Provider Nurse Practitioner Women's Health | DX: N39.41 Urge incontinence (principal); Z48.816 Encounter for surgical aftercare following surgery on the genitourinary system | CPT/HCPCS: 81000; 87077; 87086; 87184 ==

== ENCOUNTER → 2022-12-08 10:50 | Outpatient (BNVA) | payer MEDICARE, SELFPAY | PROVIDERS: PCP Family Medicine; Visit Provider Family Medicine | DX: R73.09 Other abnormal glucose (principal); E55.9 Vitamin D deficiency, unspecified | CPT/HCPCS: 82306; 83036 ==

== ENCOUNTER 2022-12-09 12:57 | Outpatient (CLI) | payer MEDICARE, SELFPAY ==
--- NOTE | 2022-12-09 13:00 | XR_ITS ---
WS: [id number] DEXA (DUAL ENERGY X-RAY ABSORPTIOMETRY) Bone mineral density was performed using a Mantex machine. HISTORY: Screening for osteoporosis COMPARISON: None available. Lumbar spine BMD (L1-L4): 1.255 g/cm2 T score: 0.6 Z score: 1.4 Total hip BMD: Left: 0.935 g/cm2. T score: -0.6 Z score: 0.3 Right: 0.976 g/cm2. T score: -0.3 Z score: 0.7 10 year probability of a major osteoporotic fracture is 13.8%. Mild curvature lumbar spine. XR/XR DEXA axial skeleton* [id number] IMPRESSION: NORMAL BONE MINERAL DENSITY based upon the WHO classification for females.
== END 2022-12-09 12:58 | disposition home or self-care (01) ==
LOC: RAD 13:00
PROVIDERS: PCP Family Medicine; Visit Provider Family Medicine
DX: Z13.820 Encounter for screening for osteoporosis (principal); Z78.0 Asymptomatic menopausal state
CPT/HCPCS: 77080

== ENCOUNTER 2022-12-27 13:48 | Outpatient (RCR) | payer MEDICARE, SELFPAY | END 2023-01-02 23:59 | disposition home or self-care (01) | LOC: SPT 13:48 | PROVIDERS: PCP Family Medicine; Visit Provider Family Medicine | DX: R29.6 Repeated falls (principal) | CPT/HCPCS: 97161 ==

== ENCOUNTER 2023-01-03 06:00 | Outpatient (RCR) | payer MEDICARE, SELFPAY | END 2023-02-02 23:59 | disposition home or self-care (01) | LOC: SPT 06:00 | PROVIDERS: PCP Family Medicine; Visit Provider Family Medicine | DX: R29.6 Repeated falls (principal) | CPT/HCPCS: 97110; 97112 ==

== ENCOUNTER 2023-01-26 08:23 | Outpatient (CLI) | payer MEDICARE, SELFPAY ==
--- NOTE | 2023-01-26 08:45 | USCV_ITS ---
Petra Avalos Age: 72 Gender: F : 1950 Exam Date: 01/26/2023 09:05 Ordering Phys: Jason Thomas MD Technologist: VIRA Exam Location: [facility] [place] Indication: syncope with collapse BP: 106 / 78 HR: 56 Rhythm: Sinus Technical Quality: Good MEASUREMENTS (Male / Female) Normal Values 2D ECHO LV Diastolic Diameter PLAX 4.8 cm 4.2 - 5.9 / 3.9 - 5.3 cm LV Systolic Diameter PLAX 2.7 cm IVS Diastolic Thickness 1.3 cm 0.6 - 1.0 / 0.6 - 0.9 cm IVS Systolic Thickness 1.4 cm LVPW Diastolic Thickness 1.2 cm 0.6 - 1.0 / 0.6 - 0.9 cm LVPW Systolic Thickness 1.6 cm LV Ejection Fraction 2D Teich 74.3 % LV Ejection Fraction MOD 2C 53.7 % LV Ejection Fraction 2C AL 52.3 % LA Diameter 3.1 cm LA Width 2.9 cm LA Height 4.5 cm RA Width 2.6 cm RA Height 3.5 cm Aorta at Sinotubular Diameter 3.0 cm IVC Diameter 1.5 cm M-MODE Aortic Annulus Diameter 3.1 cm LA Ao Ratio MM 1.1 MV E Point Septal Separation 0.3 cm DOPPLER AV Peak Velocity 158.0 cm/s LVOT Peak Velocity 101.0 cm/s MV Peak Velocity 93.0 cm/s MV Area PHT 3.1 cm squared Mitral E to A Ratio 0.6 MV E' Velocity 31.5 cm/s Mitral E to MV E' Ratio 7.6 Mitral E to LV E' Lateral Ratio 7.9 Mitral E to LV E' Septal Ratio 7.4 TR Peak Velocity 167.5 cm/s TR Peak Gradient 11.2 mmHg Right Atrial Pressure 5.0 mmHg Pulmonary Artery Systolic Pressu 16.2 mmHg PV Peak Velocity 120.0 cm/s RV Acceleration Time 0.2 s RV Ejection Time 0.3 s RV AcT/ET 0.5 FINDINGS Left Ventricle Normal left ventricular size and systolic function, EF60 % (visual). No regional wall motion abnormalities. Grade I/IV diastolic dysfunction (abnormal relaxation filling pattern), normal to mildly elevated filling pressures. Right Ventricle The right ventricle is normal in size and function. Right Atrium The right atrium is normal in size. Left Atrium The left atrium is normal in size. Mitral Valve Trace to mild mitral valve regurgitation. Aortic Valve Thickened aortic valve. Tricuspid Valve Trace tricuspid valve regurgitation. Pulmonic Valve Pulmonic valve not well visualized. Pericardium Normal pericardium without effusion. Aorta Normal ascending aorta dimension. IVC Normal inferior vena cava. CONCLUSIONS Normal left ventricular size and systolic function, EF60 % (visual). No regional wall motion abnormalities. Grade I/IV diastolic dysfunction (abnormal relaxation filling pattern), normal to mildly elevated filling pressures. Trace to mild mitral valve regurgitation. Trace tricuspid valve regurgitation. Estimated pulmonary artery peak systolic pressure within normal limits There is no pericardial effusion. There are no intracardiac masses. No similar previous studies are available for comparison Dr Jeffrey Nunes MD [facility] (Electronically Signed) Final Date: 26 January 2023 14:07 S
== END 2023-01-26 08:24 | disposition home or self-care (01) ==
PROVIDERS: PCP Family Medicine; Visit Provider Family Medicine
DX: R01.1 Cardiac murmur, unspecified (principal); R55 Syncope and collapse; I34.0 Nonrheumatic mitral (valve) insufficiency; I51.89 Other ill-defined heart diseases
CPT/HCPCS: 93306

== ENCOUNTER 2023-02-03 06:00 | Outpatient (RCR) | payer MEDICARE, SELFPAY | END 2023-03-04 23:59 | disposition home or self-care (01) | LOC: SPT 06:00 | PROVIDERS: PCP Family Medicine; Visit Provider Family Medicine | DX: R29.6 Repeated falls (principal) | CPT/HCPCS: 97110; 97112 ==

== ENCOUNTER → 2023-04-20 11:54 | Outpatient (BNVA) | payer MEDICARE, SELFPAY | PROVIDERS: PCP Family Medicine; Visit Provider Family Medicine | DX: R30.0 Dysuria (principal); N39.0 Urinary tract infection, site not specified; I83.009 Varicose veins of unspecified lower extremity with ulcer of unspecified site; L97.909 Non-pressure chronic ulcer of unspecified part of unspecified lower leg with unspecified severity; K21.9 Gastro-esophageal reflux disease without esophagitis | CPT/HCPCS: 81000; 87077; 87086; 87184 ==

== ENCOUNTER 2023-04-24 08:09 | Outpatient (CLI) | payer MEDICARE, SELFPAY ==
--- NOTE | 2023-04-24 08:16 | MM_ITS ---
WS: [id number] BILATERAL SCREENING DIGITAL TOMOSYNTHESIS MAMMOGRAM WITH CAD HISTORY: SCREEN COMPARISON: 04/04/2022 and 03/08/2021 Bilateral CC and MLO views with tomosynthesis and synthetic mammography submitted. Computer aided det ection analyzed. Breast composition: There are scattered areas of fibroglandular density. No suspicious masses, microc alcifications or architectural distortion. Benign calcifications in each breast. IMPRESSION: MM/[place] [id number] BI-RADS: 2-Benign FOLLOW UP: 1 Year Follow-up
== END 2023-04-24 08:10 | disposition home or self-care (01) ==
LOC: RAD 08:09
PROVIDERS: PCP Family Medicine; Visit Provider Family Medicine
DX: Z12.31 Encounter for screening mammogram for malignant neoplasm of breast (principal)
CPT/HCPCS: 77063; 77067

== ENCOUNTER → 2023-07-20 11:50 | Outpatient (BNVA) | payer MEDICARE, SELFPAY | PROVIDERS: PCP Family Medicine; Visit Provider Clinical Nurse Specialist Adult Health | DX: N39.41 Urge incontinence (principal); N30.00 Acute cystitis without hematuria | CPT/HCPCS: 81000; 87077; 87086; 87184 ==

== ENCOUNTER → 2023-11-16 09:14 | Outpatient (BNVA) | payer MEDICARE, SELFPAY | PROVIDERS: PCP Family Medicine; Visit Provider Family Medicine | DX: R30.0 Dysuria (principal); N39.0 Urinary tract infection, site not specified | CPT/HCPCS: 81000; 87086 ==

== ENCOUNTER 2024-02-19 12:27 | Outpatient (CLI) | payer MEDICARE, SELFPAY ==
--- NOTE | 2024-02-19 12:32 | XRR_ITS ---
PROCEDURE INFORMATION: Exam: XR Cervical Spine Exam date and time: 02/19/2024 12:37 PM Age: 73 years old Clinical indication: Radicular pain (radiculopathy); Cervical region; Additional info: Cervical radiculopathy TECHNIQUE: Imaging protocol: Radiologic exam of the cervical spine. Views: 2 or 3 views. Total images: 4 COMPARISON: CR XR thoracic spine 3V* [id number] 02/19/2024 12:37 PM FINDINGS: Bones/joints: There is 4-5 mm anterolisthesis of C4 on C5 and C5 on C6. There is also interspinous widening between the C5 and C6 spinous process. Mild disc space narrowing at C5-C6 and C6-C7. There is also 2 mm anterolisthesis of C6 on C7. No acute appearing fracture is identified. Soft tissues: No prevertebral soft tissue swelling identified. Left carotid bifurcation region calcification is present. Other findings: There is chronic calcification superficial to the posterior aspect of the C7 spinous process. XR/XR cervical spine 3V* [id number] IMPRESSION: Anterolisthesis at C4-C5, C5-C6 and C6-C7.
--- NOTE | 2024-02-19 12:32 | XRR_ITS ---
PROCEDURE INFORMATION: Exam: XR Lumbosacral Spine Exam date and time: 02/19/2024 12:37 PM Age: 73 years old Clinical indication: Low back pain; Additional info: Lumbar radiculopathy TECHNIQUE: Imaging protocol: Radiologic exam of the lumbosacral spine. Views: 2 or 3 views. Total images: 3 COMPARISON: CR XR lumbar spine min 4V [id number] 12/29/2021 11:56 AM FINDINGS: Bones/joints: There appear to be five lumbar-type vertebral bodies. There is leftward curvature of the lumbar spine. Mild chronic appearing anterior wedge compression deformity of the L1 and L2 vertebral bodies appears unchanged. Trace anterolisthesis of L4 on L5 appears unchanged. Disc space narrowing at L4-L5 greater on the right. Disc space narrowing at L5-S1 with endplate sclerosis and vacuum disc. No acute fracture identified. Soft tissues: No acute soft tissue abnormality identified. XR/XR lumbar spine 2-3V* [id number] IMPRESSION: Multilevel degenerative changes lumbar spine. Degree of leftward curvature of the lumbar spine appears increased as compared with 12/29/2021
--- NOTE | 2024-02-19 12:32 | XRR_ITS ---
PROCEDURE INFORMATION: Exam: XR Thoracic Spine Exam date and time: 02/19/2024 12:37 PM Age: 73 years old Clinical indication: Pain in thoracic spine; Additional info: Thoracic back pain TECHNIQUE: Imaging protocol: Radiologic exam of the thoracic spine. Views: 3 views. Total images: 2 COMPARISON: 10/13/2021 FINDINGS: Bones/joints: There is minimal anterior wedge compression deformity of two adjacent midthoracic vertebral bodies which appears unchanged from the prior study. No acute appearing thoracic spine fracture or acute subluxation identified. Age consistent degenerative changes. Soft tissues: No paraspinous soft tissue swelling identified. XR/XR thoracic spine 3V* [id number] IMPRESSION: No acute osseous abnormality identified.
== END 2024-02-19 12:28 | disposition home or self-care (01) ==
PROVIDERS: PCP Family Medicine; Visit Provider Family Medicine
DX: M54.12 Radiculopathy, cervical region (principal); M54.16 Radiculopathy, lumbar region; M54.6 Pain in thoracic spine
CPT/HCPCS: 72040; 72072; 72100

== ENCOUNTER 2024-03-11 11:54 | Outpatient (CLI) | payer MEDICARE, SELFPAY ==
--- NOTE | 2024-03-11 12:01 | XR_ITS ---
WS: [id number] XR cervical spine fl/ex [id number] REASON FOR EXAM: Anterolithesis present FINDINGS: Exaggerated lordosis. No vertebral body abnormality. Mild narrowing of the C4-5 and C5-C6 disc spaces. 3 to 4 mm of anterolisthesis of C3 on C4, C4 on C5, and C5 on C6 with flexion in the neutral position . With flexion there is mild accentuation of these listheses. With extension there is mild reduction of the listheses. No other significant vertebral body movement with flexion or extension. XR/XR cervical spine fl/ex [id number] IMPRESSION: Degenerative spondylosis with listhesis as above.
== END 2024-03-11 11:55 | disposition home or self-care (01) ==
LOC: RAD 11:58
PROVIDERS: PCP Family Medicine; Visit Provider Family Medicine
DX: M43.12 Spondylolisthesis, cervical region (principal); M47.812 Spondylosis without myelopathy or radiculopathy, cervical region
CPT/HCPCS: 72040

== ENCOUNTER 2024-03-14 08:13 | Outpatient (RCR) | payer MEDICARE, SELFPAY | END 2024-04-04 23:59 | disposition home or self-care (01) | LOC: SPT 08:13 | PROVIDERS: PCP Family Medicine; Visit Provider Family Medicine | DX: M54.12 Radiculopathy, cervical region (principal); M54.16 Radiculopathy, lumbar region; M54.6 Pain in thoracic spine | CPT/HCPCS: 97110; 97161 ==

== ENCOUNTER 2024-04-05 06:00 | Outpatient (RCR) | payer MEDICARE, SELFPAY | END 2024-04-19 23:59 | disposition home or self-care (01) | LOC: SPT 06:00 | PROVIDERS: PCP Family Medicine; Visit Provider Family Medicine | DX: M54.12 Radiculopathy, cervical region (principal) | CPT/HCPCS: 97110 ==

== ENCOUNTER → 2024-04-24 13:20 | Outpatient (BNVA) | payer MEDICARE, SELFPAY | PROVIDERS: PCP Family Medicine; Visit Provider Family Medicine | DX: N39.0 Urinary tract infection, site not specified (principal); N39.41 Urge incontinence | CPT/HCPCS: 81000; 87086 ==

== ENCOUNTER 2024-04-30 12:27 | Outpatient (CLI) | payer MEDICARE, SELFPAY ==
--- NOTE | 2024-04-30 12:31 | XRR_ITS ---
PROCEDURE INFORMATION: Exam: XR Lumbosacral Spine Exam date and time: 04/30/2024 12:55 PM Age: 73 years old Clinical indication: Injury or trauma; Blunt trauma (contusions or hematomas); Injury details: Fall 10 days ago, posterior lower back and tailbone pain since; Additional info: Pain after fall TECHNIQUE: Imaging protocol: Radiologic exam of the lumbosacral spine. Views: 2 or 3 views. COMPARISON: CR XR sacrum coccyx min 2V [id number] 04/30/2024 12:55 PM FINDINGS: Bones/joints: Mild convex right scoliosis centered at L1-L2. Grade 1 degenerative anterolisthesis of L4 on L5. Vertebral body height is maintained. There is moderate multilevel lumbar disc degeneration. Moderate lower lumbar facet spondylosis. Mild chronic deformity of the distal sacrum. No acute spinal fracture. The visible portion of the pelvis and sacrum is intact. Visible portions of the ribs are intact. Soft tissues: Visible soft tissues are unremarkable. Gastrointestinal tract: Stool distended cecum and ascending colon noted. XR/XR lumbar spine 2-3V* [id number] IMPRESSION: 1. No acute findings. 2. Lumbar disc and facet degeneration with scoliosis as above.
--- NOTE | 2024-04-30 12:31 | XRR_ITS ---
PROCEDURE INFORMATION: Exam: XR Sacrum and Coccyx, 2 or More Views Exam date and time: 04/30/2024 12:55 PM Age: 73 years old Clinical indication: Injury or trauma; Blunt trauma (contusions or hematomas); Injury details: Fall 10 days ago, posterior lower back and tailbone pain since; Additional info: Pain - fall TECHNIQUE: Imaging protocol: XR of the sacrum and coccyx, 2 or more views. COMPARISON: CR XR lumbar spine 2-3V* [id number] 04/30/2024 12:55 PM FINDINGS: Bones/joints: Sacrum is intact. SI joints are symmetric. Visible portions of the pelvis and hips are unremarkable. There is moderate degenerative disease in the lower lumbar spine. There is chronic deformity of the anterior margin of the distal sacrum at S3 and S4 which is similar to findings on 12/29/2021, suggesting healed fracture. No acute fracture. Soft tissues: Visible soft tissues are unremarkable. Gastrointestinal tract: Stool distended cecum noted. XR/XR sacrum coccyx min 2V [id number] IMPRESSION: No acute findings.
--- NOTE | 2024-04-30 12:31 | XRR_ITS ---
PROCEDURE INFORMATION: Exam: XR Left Hip Exam date and time: 04/30/2024 12:55 PM Age: 73 years old Clinical indication: Injury or trauma; Blunt trauma (contusions or hematomas); Left; Hip; Injury details: Fall 10 days ago, posterior lower back and tailbone pain since; Additional info: Pain after fall TECHNIQUE: Imaging protocol: Radiologic exam of the left hip. Views: 2 or 3 views hip with pelvis when performed. COMPARISON: CR XR lumbar spine 2-3V* [id number] 04/30/2024 12:55 PM FINDINGS: Bones/joints: Proximal femora are intact. Femoroacetabular alignment is normal. Joint spaces are preserved. No pelvic or femoral fracture. Sacrum is unremarkable. SI joints are symmetric. Soft tissues: Visible soft tissues are unremarkable. XR/XR hip LT 2-3V wo/w pel* [id number] IMPRESSION: No acute fracture.
== END 2024-04-30 12:28 | disposition home or self-care (01) ==
LOC: RAD 12:28
PROVIDERS: PCP Family Medicine; Visit Provider Family Medicine
DX: M43.8X8 Other specified deforming dorsopathies, sacral and sacrococcygeal region (principal); M54.16 Radiculopathy, lumbar region; M51.360 Other intervertebral disc degeneration, lumbar region with discogenic back pain only; M43.16 Spondylolisthesis, lumbar region; M25.552 Pain in left hip
CPT/HCPCS: 72100; 72220; 73502

== ENCOUNTER 2024-05-14 13:41 | Outpatient (CLI) | payer MEDICARE, SELFPAY ==
--- NOTE | 2024-05-14 13:45 | MM_ITS ---
WS: [id number] BILATERAL 3D TOMOSYNTHESIS DIGITAL SCREENING MAMMOGRAPHY WITH CAD CLINICAL INFORMATION: SCREENING HISTORY: Screening mammogram. No current complaints. COMPARISON: 2022 TECHNIQUE: Bilateral CC and MLO views. FINDINGS: The breasts are composed of heterogeneous fibroglandular density tissue, which can limit the detectio n of small underlying mass lesions. Incidental punctate and lucent centered calcifications. Stable co arse clustered calcifications LEFT breast. Increasing ovoid nodular density subareolar LEFT breast. Recommend further evaluation with ultrasound . Nodule measures 7 mm. MM/MM [facility] tomosynthesis [id number] IMPRESSION: DENSITY: The breasts are heterogeneously dense, which may obscure small masses. BI-RADS: 0 - Incomplete: Need additional imaging evaluation FOLLOW UP: Need Additional Imaging Recommend subareolar LEFT breast ultrasound.
== END 2024-05-14 13:42 | disposition home or self-care (01) ==
PROVIDERS: PCP Family Medicine; Visit Provider Family Medicine
DX: Z12.31 Encounter for screening mammogram for malignant neoplasm of breast (principal); R92.333 Mammographic heterogeneous density, bilateral breasts; R92.1 Mammographic calcification found on diagnostic imaging of breast; N63.42 Unspecified lump in left breast, subareolar
CPT/HCPCS: 77063; 77067

== ENCOUNTER 2024-06-13 13:10 | Outpatient (CLI) | payer MEDICARE, SELFPAY ==
--- NOTE | 2024-06-13 13:16 | US_ITS ---
WS: [id number] ULTRASOUND BREAST LEFT TECHNIQUE: Ultrasound left breast focused area of concern. CLINICAL INFORMATION: ABNORMAL MAMMOGRAM COMPARISON: Mammogram 05/14/2024 FINDINGS: Ultrasound LEFT breast subareolar. In the area of concern, there are 2 ovoid incidental lymph nodes m easuring 5 x 8 x 3 mm and 8 x 10 x 2 mm. Findings have a benign appearance. No other suspicious findi ngs. Recommend return to annual screening mammography. US/US breast LT limited* [id number] IMPRESSION: BI-RADS 2 benign Recommend return to annual screening mammography
== END 2024-06-13 13:11 | disposition home or self-care (01) ==
LOC: RAD 13:13
PROVIDERS: PCP Family Medicine; Visit Provider Family Medicine
DX: R92.8 Other abnormal and inconclusive findings on diagnostic imaging of breast (principal); R59.0 Localized enlarged lymph nodes
CPT/HCPCS: 76642

== ENCOUNTER → 2024-11-29 09:49 | Outpatient (BNVA) | payer MEDICARE, SELFPAY | PROVIDERS: PCP Family Medicine; Visit Provider Family Medicine | DX: R30.0 Dysuria (principal); N39.41 Urge incontinence | CPT/HCPCS: 81000; 87086 ==

== ENCOUNTER → 2025-03-24 16:12 | Outpatient (BNVA) | payer MEDICARE, SELFPAY | PROVIDERS: PCP Family Medicine; Visit Provider Family Medicine | DX: R30.0 Dysuria (principal) | CPT/HCPCS: 81000 ==